=== PATIENT | female | born 1960 | race Caucasian/White ===

== ENCOUNTER 2023-04-13 17:03 | Emergency (ER) | payer OTHER, SELFPAY ==
[2023-04-13 17:20] VITALS: BP 121/71; PULSE 65; RESP 16; TEMP 36.3; O2SAT 100
--- NOTE | 2023-04-13 17:32 | ED.SKABFB ---
HPI - Skin/Abscess/Foreign Bdy General Chief complaint: Skin/Abscess/Foreign Body Stated complaint: rash Time Seen by Provider: 04/13/23 17:32 Source: patient Mode of arrival: ambulatory Limitations: no limitations History of Present Illness HPI narrative: 63 yo F presents with c/o poison tamika to bilatearl arms and ABD for 1 wk. Apply an OTC poison tamika medication for itching. Not using any steroid creams. Reports allergic to poison tamika. Use to have order to medrol dosepak from PCP but hasn't needed it recently. All systems reviewed and negative except as noted above. Related Data Home Medications Medication Instructions Recorded Confirmed levothyroxine 75 mcg tablet 75 mcg PO DAILY 04/13/23 04/13/23 (Synthroid) Allergies Allergy/AdvReac Type Severity Reaction Status Date / Time cortisone Allergy Mild Unknown Verified 04/13/23 17:29 nickel Allergy Mild Unknown Verified 04/13/23 17:29 Review of Systems Review of Systems: CONSTITUTIONAL: Denies fever, chills, or sweats. EYES: Denies visual changes, redness, or discharge. ENT: Denies rhinorrhea, congestion, sore throat, or otalgia. CARDIOVASCULAR: Denies chest pain, palpitations, or edema. RESPIRATORY: Denies cough or dyspnea. GASTROINTESTINAL: Denies abdominal pain, nausea, vomiting, or diarrhea. GENITOURINARY: Denies dysuria or hematuria. SKIN: reports itchy poison tamika rash to bilateral forearms and ABD. MUSCULOSKELETAL: Denies back pain, joint pain, or myalgia. NEUROLOGIC: Denies headache, numbness, or weakness. PSYCHIATRIC: Denies anxiety or depression. All other systems reviewed are negative, except as documented in HPI. PMFSH Comments At time of signature, agree with nursing past medical, surgical, social and family history. There is no relevant family history pertinent to the presenting complaint. Exam Narrative: GENERAL: This is a well-nourished, well-developed patient, in no apparent distress. HEAD: normocephalic, atraumatic. EYES: PERRL. Sclera clear/white. Vision is grossly intact. EARS: External ears normal NOSE: External nose normal NECK: Neck supple, non-tender without lymphadenopathy, masses or thyromegaly. CARDIOVASCULAR: Regular rate and rhythm without murmurs, gallops, or rubs. RESPIRATORY: Clear to auscultation. Breath sounds equal bilaterally. No wheezes, rales, or rhonchi. SKIN: warm, Dry, intact , good texture and turgor. erythematous vesicular rash to bilateral forearms and mild to anterior lower ABD. NEURO: awake, alert, and oriented to person, place and time. There were no obvious focal neurologic abnormalities. EXTREMITIES: No joint tenderness, effusion, or edema noted. Course Course Level of Care: Express Care Visit Vital Signs Vital signs: Vital Signs Temperature 36.3 C L 04/13/23 17:20 Pulse Rate 65 04/13/23 17:20 Respiratory Rate 16 04/13/23 17:20 Blood Pressure 121/71 04/13/23 17:20 Pulse Oximetry 100 04/13/23 17:20 Oxygen Delivery Room Air 04/13/23 17:20 Temperature 36.3 C L 04/13/23 17:20 Pulse Rate 65 04/13/23 17:20 Respiratory Rate 16 04/13/23 17:20 Blood Pressure 121/71 04/13/23 17:20 Pulse Oximetry 100 04/13/23 17:20 Oxygen Delivery Room Air 04/13/23 17:20 reviewed. MDM - Skin/Abscess/Foreign Bdy MDM Narrative Medical decision making narrative: Patient is aware of diagnosis, understands and agrees to treatment plan. Anticipatory guidance given. Patient agrees to follow-up as directed and is aware of reasons to seek care at the emergency department. Portions of this record may have been created with voice recognition software Differential Diagnosis Differential diagnosis: Likely contact dermatitis (poison tamika) Discharge Plan Discharge Clinical Impression: Dermatitis due to plants, including poison tamika, sumac, and oak Patient Disposition: Home, Self-Care Condition: Stable Instructions: Poison Tamika (ED) Additional Instructions: Varun
== END 2023-04-13 18:16 | disposition home or self-care (01) ==
PROVIDERS: Emergency Provider Nurse Practitioner Family
DX: L23.7 Allergic contact dermatitis due to plants, except food (principal)
CPT/HCPCS: 99213; G0463